=== PATIENT | female | born 1960 | race Two or more races ===

== ENCOUNTER 2021-08-31 10:05 | Day surgery (SDC) | payer OTHER ==
[~2021-08-31 10:05] MED LIST: LIVALO4 MG PO; METFORMIN PO; NEXIUM PO; TIROSINT100 MCG PO
[2021-08-31] MEDS ORDERED: MORGIDOX100 MG PO (11:29)
[2021-08-31] MEDS ORDERED: Tylenol #3 PO (11:29)
== END 2021-08-31 17:40 | disposition home or self-care (01) ==
LOC: CIR.AMB 10:05
PROVIDERS: ATTEND Obstetrics & Gynecology
DX: D25.0 Submucous leiomyoma of uterus (principal); N84.0 Polyp of corpus uteri